=== PATIENT | female | born 1990 | race Caucasian/White ===

== ENCOUNTER 2022-06-03 22:20 | Emergency (ER) | payer OTHER ==
[~2022-06-03 22:20] MED LIST: BACLOFEN 10MG T10 MG PO; MEDROL 4MG DOSEP4 MG PO
[2022-06-04] MEDS ORDERED: AUGMENTIN 500-1 EACH PO (00:55)
[2022-06-04] MEDS ORDERED: DIFLUCAN 100MG100 MG PO (00:55)
[2022-06-04] MEDS ORDERED: NORCO 5-325 TA1 EACH PO (00:55)
== END 2022-06-04 01:18 | disposition home or self-care (01) ==
LOC: FER 22:20
DX: H66.92 Otitis media, unspecified, left ear (principal); H61.22 Impacted cerumen, left ear; F17.210 Nicotine dependence, cigarettes, uncomplicated
CPT/HCPCS: J1885; Q0162